=== PATIENT | female | born 1945 | race Caucasian/White ===

== ENCOUNTER 2022-10-02 11:00 | Inpatient (IN) | payer OTHER ==
[~2022-10-02] VITALS: Ht 162.6 cm; Wt 81.5 kg
[2022-10-02] MEDS ORDERED: HYDROmorphone HCL 2 MG/ML VL/or syr IV ONE ×2 (14:45→19:45)
[2022-10-02] MEDS ORDERED: ONDANSETRON HCL 4 MG/2 ML VIAL IV ONE ×2 (14:45)
[2022-10-02 17:17] LABS: Basophils # (auto) 0 10 ^3/uL (0-0.2); Basophils % (auto) 0.3 % (0.0-2.0); Eosinophils # (auto) 0.1 10 ^3/uL (0-0.8); Eosinophils % (auto) 0.8 % (0.0-7.0); Hematocrit 40.5 % (36.0-46.0); Hemoglobin 12.8 g/dL (12.2-16.2); Lymphocytes # (auto) 1.5 10 ^3/uL (0.4-5.4); Lymphocytes % (auto) 14.9 % (10.0-50.0); Mean Corpuscular Hemoglobin 27.2 pg (28.0-32.0); Mean Corpuscular Hgb Conc. 31.6 g/dL (32.0-36.0); Mean Corpuscular Volume 86.2 fL (80.0-100.0); Monocytes # (auto) 0.5 10 ^3/uL (0-1.3); Monocytes % (auto) 4.6 % (0.0-12.0); Neutrophils # (auto) 7.8 10 ^3/uL (1.6-8.6); Neutrophils % (auto) 79.4 % (37.0-80.0); Nucleated Red Blood Cells % 0.1 %; Red Cell Distribution Width 14.6 % (11.8-14.3); White Blood Cell 9.8 10^3/uL (4.4-10.8)
[2022-10-02 17:33] LABS: Albumin 3.8 g/dL (3.4-5.0); BUN/Creatinine Ratio 23.3; Calcium 9.3 mg/dL (8.5-10.1); Potassium 4.7 mmol/L (3.5-5.1)
[2022-10-02 17:35] LABS: Bilirubin, Total 0.4 mg/dL (0.2-1.0); Total Protein 7.4 g/dL (6.4-8.2)
[2022-10-02 17:42] LABS: INR 0.95 (0.9-1.15); Partial Thromboplastin Time 25.6 sec (24.6-33.4)
[2022-10-02] MEDS ORDERED: ONDANSETRON HCL 4 MG/2 ML VIAL IV PRN (22:45)
[2022-10-02] MEDS ORDERED: hydrALAZINE HCL 20 MG/ML VL IV PRN (22:45)
[2022-10-02] MEDS ORDERED: DEXTROSE (50%) 50ML SYRG IV PRN (22:45)
[2022-10-02] MEDS ORDERED: NITROGLYCERIN 0.4 MG SL TAB SL PRN (22:45)
[2022-10-02] MEDS ORDERED: ACETAMINOPHEN 325 MG TAB PO PRN (22:45)
[2022-10-02] MEDS ORDERED: MORPHINE SULFATE INJ 2 MG/ml SYRG IV PRN (22:45)
[2022-10-03] MEDS: SODIUM CHLORIDE 0.9% 1,000 ML IV SCH ×2 (00:22→15:25)
[2022-10-03] MEDS: ACCU-CHEK COMFORT CURVE STRIP VI SCH ×5 (00:34→23:46)
[2022-10-03] MEDS: InsuLIN REG 1unit/0.01ml Soln (100units/ml) SC SCH ×5 (00:44→23:50)
[2022-10-03 01:35] VITALS: BP 105/66
[2022-10-03] MEDS: HYDROmorphone HCL 2 MG/ML VL/or syr IV PRN ×3 (03:22→20:13)
[2022-10-03 05:00] VITALS: BP 104/65
[2022-10-03] MEDS: HYDROcodone-ACET 5/325MG TAB PO PRN ×2 (05:09→22:23)
[2022-10-03] MEDS ORDERED: HYDR-4798 PO (05:51)
[2022-10-03] MEDS ORDERED: AMLO-489 PO (05:51)
[2022-10-03] MEDS ORDERED: OMEP20TA PO (05:51)
[2022-10-03] MEDS ORDERED: ATEN50TA PO (05:51)
[2022-10-03] MEDS ORDERED: GABA100C9 PO (05:51)
[2022-10-03] MEDS ORDERED: LISI20TA28 PO (05:51)
[2022-10-03] MEDS ORDERED: GLIP5TAB12 PO (05:51)
[2022-10-03] MEDS ORDERED: DULO20CA PO (05:51)
[2022-10-03] MEDS ORDERED: ROSU20TA14 PO (05:51)
[2022-10-03 06:02] LABS: Basophils # (auto) 0 10 ^3/uL (0-0.2); Basophils % (auto) 0.4 % (0.0-2.0); Eosinophils # (auto) 0.1 10 ^3/uL (0-0.8); Eosinophils % (auto) 0.9 % (0.0-7.0); Hematocrit 39.5 % (36.0-46.0); Hemoglobin 12.7 g/dL (12.2-16.2); Lymphocytes # (auto) 1.7 10 ^3/uL (0.4-5.4); Mean Corpuscular Hgb Conc. 32.2 g/dL (32.0-36.0); Mean Corpuscular Volume 86.8 fL (80.0-100.0); Monocytes # (auto) 0.7 10 ^3/uL (0-1.3); Monocytes % (auto) 8.2 % (0.0-12.0); Neutrophils # (auto) 5.7 10 ^3/uL (1.6-8.6); Neutrophils % (auto) 69.5 % (37.0-80.0); Red Blood Cells 4.54 10^6/uL (4.0-5.20); Red Cell Distribution Width 14.7 % (11.8-14.3); White Blood Cell 8.2 10^3/uL (4.4-10.8)
[2022-10-03 06:30] LABS: Albumin 3.2 g/dL (3.4-5.0); BUN/Creatinine Ratio 15.1; Bilirubin, Total 0.5 mg/dL (0.2-1.0); Calcium 8.9 mg/dL (8.5-10.1); Total Protein 6.6 g/dL (6.4-8.2)
[2022-10-03] MEDS: FAMOTIDINE (10MG/ML) 2ML VL IV SCH (08:58)
[2022-10-03 09:01] VITALS: BP 137/75
[2022-10-03] MEDS ORDERED: ENOXAPARIN SOD 40 MG/0.4 ML SYRINGE SC SCH (10:00)
[2022-10-03] MEDS ORDERED: GENTAMICIN SULF 80 MG/2 ML VIAL ONE (12:13)
[2022-10-03] MEDS ORDERED: ceFAZolin 1GM VL ONE (12:21)
[2022-10-03] MEDS ORDERED: BUPIVACAINE W/ EPINEPH 0.25% INJ 50ML MDV ONE (12:21)
[2022-10-03] MEDS ORDERED: VANCOMYCIN HCL 1000 MG VL ONE (12:40)
[2022-10-03] MEDS ORDERED: SODIUM CHLORIDE LOCK 10 ML ONE ×2 (13:19→14:00)
[2022-10-03] MEDS ORDERED: PROPOFOL 10 MG/ML 20 ML IV ONE ×2 (13:29→15:46)
[2022-10-03] MEDS ORDERED: PHENYLEPHRINE HCL 10 MG/ML VL ONE (13:37)
[2022-10-03] MEDS ORDERED: ePHEDrine SULFATE 50 MG/ML AMP ONE (14:00)
[2022-10-03] MEDS ORDERED: ESMOLOL HCL 10 ML IV ONE (15:03)
[2022-10-03] MEDS ORDERED: LIDOCAINE 2% (LOCAL ANESTH.) PF 5ml SDV ONE (16:10)
[2022-10-03] MEDS ORDERED: fentaNYL CITRATE 100 MCG/2 ML VL ONE (16:20)
[2022-10-03 22:00] VITALS: BP 157/81
[2022-10-03] MEDS ORDERED: DexAMETHasone SOD PHOS 4 MG/1ML SDV INJ IV ONE (22:20)
[2022-10-03] MEDS ORDERED: GLYCOPYRROLATE 0.2 MG/ML 1ML VIAL IV ONE (22:20)
[2022-10-03] MEDS ORDERED: ONDANSETRON HCL 4 MG/2 ML VIAL IV ONE (22:20)
[2022-10-03] MEDS: ceFAZolin 2 GM in D5W 5% 100 ML IV SCH (22:22)
[2022-10-04] MEDS: HYDROmorphone HCL 2 MG/ML VL/or syr IV PRN ×5 (04:20→20:49)
[2022-10-04 05:00] VITALS: BP 143/66
[2022-10-04] MEDS: ACCU-CHEK COMFORT CURVE STRIP VI SCH ×3 (05:33→17:34)
[2022-10-04] MEDS: InsuLIN REG 1unit/0.01ml Soln (100units/ml) SC SCH ×3 (05:35→17:34)
[2022-10-04] MEDS: ceFAZolin 2 GM in D5W 5% 100 ML IV SCH ×2 (05:37→12:49)
[2022-10-04 06:12] LABS: Basophils # (auto) 0 10 ^3/uL (0-0.2); Basophils % (auto) 0.1 % (0.0-2.0); Eosinophils # (auto) 0 10 ^3/uL (0-0.8); Hematocrit 29.5 % (36.0-46.0); Hemoglobin 9.5 g/dL (12.2-16.2); Lymphocytes # (auto) 0.9 10 ^3/uL (0.4-5.4); Lymphocytes % (auto) 9.9 % (10.0-50.0); Mean Corpuscular Hemoglobin 27.9 pg (28.0-32.0); Mean Corpuscular Hgb Conc. 32.4 g/dL (32.0-36.0); Mean Corpuscular Volume 86.2 fL (80.0-100.0); Monocytes # (auto) 0.6 10 ^3/uL (0-1.3); Monocytes % (auto) 7.1 % (0.0-12.0); Neutrophils # (auto) 7.5 10 ^3/uL (1.6-8.6); Neutrophils % (auto) 82.9 % (37.0-80.0); Red Blood Cells 3.42 10^6/uL (4.0-5.20); Red Cell Distribution Width 14.7 % (11.8-14.3)
[2022-10-04] MEDS: HYDROcodone-ACET 5/325MG TAB PO PRN ×3 (06:26→17:36)
[2022-10-04 06:39] LABS: Calcium 8.8 mg/dL (8.5-10.1); Potassium 5.3 mmol/L (3.5-5.1)
[2022-10-04] MEDS: FAMOTIDINE (10MG/ML) 2ML VL IV SCH (08:49)
[2022-10-04] MEDS: SODIUM CHLORIDE 0.9% 1,000 ML IV SCH (08:50)
[2022-10-04 09:00] VITALS: BP 156/66
[2022-10-04 13:00] VITALS: BP 103/67
[2022-10-04 17:00] VITALS: BP 124/68
[2022-10-04] MEDS: ENOXAPARIN SOD 40 MG/0.4 ML SYRINGE SC SCH (17:37)
[2022-10-04 22:00] VITALS: BP 125/71
[2022-10-05] MEDS: HYDROcodone-ACET 5/325MG TAB PO PRN ×3 (02:07→19:17)
[2022-10-05 05:00] VITALS: BP 140/78
[2022-10-05 05:25] LABS: Hematocrit 28.8 % (36.0-46.0); Hemoglobin 9.8 g/dL (12.2-16.2)
[2022-10-05] MEDS: ACCU-CHEK COMFORT CURVE STRIP VI SCH ×4 (05:47→23:31)
[2022-10-05] MEDS: InsuLIN REG 1unit/0.01ml Soln (100units/ml) SC SCH ×3 (05:47→17:46)
[2022-10-05 09:00] VITALS: BP 140/70
[2022-10-05] MEDS: ENOXAPARIN SOD 40 MG/0.4 ML SYRINGE SC SCH (09:13)
[2022-10-05] MEDS: HYDROmorphone HCL 2 MG/ML VL/or syr IV PRN ×3 (09:14→22:02)
[2022-10-05 13:00] VITALS: BP 149/84
[2022-10-05] MEDS: GABAPENTIN 100 MG CAP PO SCH ×2 (13:15→22:03)
[2022-10-05] MEDS: ATENOLOL 50 MG TAB PO SCH (13:15)
[2022-10-05 17:00] VITALS: BP 112/58
[2022-10-05 22:00] VITALS: BP 130/54
[2022-10-05] MEDS ORDERED: ATORVASTATIN 20 MG TAB PO SCH (22:00)
[2022-10-05] MEDS: LISINOPRIL 20 MG TAB PO SCH (22:04)
[2022-10-06] MEDS: InsuLIN REG 1unit/0.01ml Soln (100units/ml) SC SCH ×3 (00:04→12:33)
[2022-10-06 05:00] VITALS: BP 126/71
[2022-10-06] MEDS: ACCU-CHEK COMFORT CURVE STRIP VI SCH ×2 (05:52→12:33)
[2022-10-06] MEDS: GABAPENTIN 100 MG CAP PO SCH ×2 (06:09→14:06)
[2022-10-06 08:00] VITALS: BP 143/71
[2022-10-06] MEDS: ENOXAPARIN SOD 40 MG/0.4 ML SYRINGE SC SCH (09:37)
[2022-10-06] MEDS: HYDROmorphone HCL 2 MG/ML VL/or syr IV PRN (09:37)
[2022-10-06] MEDS: ATENOLOL 50 MG TAB PO SCH (09:39)
[2022-10-06] MEDS: LISINOPRIL 20 MG TAB PO SCH (09:41)
[2022-10-06] MEDS ORDERED: glipiZIDE 5 MG TAB PO SCH (10:00)
[2022-10-06] MEDS ORDERED: DULoxetine HCL 30 MG CAP PO SCH (10:00)
[2022-10-06] MEDS ORDERED: PANTOPRAZOLE 40 MG TAB PO SCH (10:00)
[2022-10-06] MEDS ORDERED: amLODIPine BESYLATE 5 MG TAB PO SCH (10:00)
[2022-10-06 12:00] VITALS: BP 122/58
[2022-10-06] MEDS: HYDROcodone-ACET 5/325MG TAB PO PRN (12:07)
[2022-10-06 14:39] VITALS: BP 122/58
== END 2022-10-06 15:02 | DRG 482 ==
LOC: EDBD 11:00 → ER 11:30 → OVERFLOW 22:37 → CENTRAL 23:47
PROVIDERS: ADMIT Nurse Practitioner Family; ATTEND Hospitalist
PROC: 0QSC04Z Reposition Left Lower Femur with Internal Fixation Device, Open Approach (ICD-10-PCS; principal; 2022-10-03 13:00)
DX: M97.12XA Periprosthetic fracture around internal prosthetic left knee joint, initial encounter (principal); M97.02XA Periprosthetic fracture around internal prosthetic left hip joint, initial encounter; E11.9 Type 2 diabetes mellitus without complications; E78.5 Hyperlipidemia, unspecified; I10 Essential (primary) hypertension; Z96.651 Presence of right artificial knee joint; Z20.822 Contact with and (suspected) exposure to COVID-19; J44.9 Chronic obstructive pulmonary disease, unspecified; I25.10 Atherosclerotic heart disease of native coronary artery without angina pectoris; Z96.653 Presence of artificial knee joint, bilateral; Z79.891 Long term (current) use of opiate analgesic; Z88.6 Allergy status to analgesic agent; Z85.118 Personal history of other malignant neoplasm of bronchus and lung; Z87.891 Personal history of nicotine dependence
CPT/HCPCS: 36415; 71045; 73560; 73562; 73700; 76000; 80048; 80053; 82962; 83036; 85014; 85018; 85025; 85610; 85730; 86850; 86900; 86901; 87081; 87426; 93306; 93971; 96361; 96365; 96375; 96376; G0378; J0690; J1100; J1815; J2001; J2405; J2704; J3490; J7060

== ENCOUNTER 2025-10-13 15:59 | Emergency (ER) | payer OTHER ==
[~2025-10-13] VITALS: Ht 162.6 cm; Wt 78.0 kg
[~2025-10-13 15:59] MED LIST: AMLO1TAB22 PO; ATEN50TA PO; DULO20CA PO; GABA-1308 PO; GLIP5TAB21 PO; HYDR-4798 PO; LISI20TA56 PO; OMEP20TA PO; ROSU20TA14 PO
[2025-10-13 16:10] VITALS: PULSE 104; RESP 15; O2SAT 95
--- NOTE | 2025-10-13 16:50 | ED.PDOC ---
Altered Mental Status HPI Comments HPI: Robby 80 y.o female presents to the ED via EMS for a chief complaint of ALOC. Patient reports taking two of her pain medications today (unsure if it was her Morphine or Percocet in which she takes for chronic pain). Patient presents drowsy at bedside but is responsive when asking questions. Patient states she was out with her friends today shopping and yesterday was out and feeling well. Patient was given 2mg Narcan but had no change in baseline. Patient denies any recent head injuries or blood thinner use. Initial Vitals BP: 132/69 HR: 104 RR: 18 O2: 95% RA Temp: 98.6 F Past Medical History: HTN, DM and chronic back pain Past Surgical History: Unobtainable Social History: Denies Allergies: HPI: Poor Historian. REVIEW OF SYSTEMS: CONSTITUTIONAL: Denies acute: fever, diaphoresis, chills, HEAD: Denies acute: headache, photophobia Eyes: Denies acute: Double vision, vision loss, eye pain, eye discharge. EARS: Denies acute: tinnitus, hearing loss, ear discharge, ear pain, THROAT: Denies acute: sore throat, swelling, difficulty swallowing , pain with swallowing, change in voice. NECK: Denies acute: neck pain, neck swelling, stiff neck. HEART: Denies acute : chest pain, palpitations, LUNGS: Denies acute: SOB, wheezing, cough, hemoptysis ABDOMEN: Denies acute: abdominal pain, Nausea, Vomiting, diarrhea, melena , hematemesis, hematochezia SKIN: Denies acute: rash, redness, lesions, itchiness. EXTREMITIES: Denies acute: calf pain, numbness, tingling, weakness, denies pain in extremity. Denies acute: Low back pain. Neuro: Denies acute: focal neurological deficit, motor or sensory focal neurological deficit, tremors, seizure like activity, , loss of bowel or bladder function, cauda equina like symptoms. : Denies acute: dysuria, hematuria, flank pain, increase in urinary frequency. PSYCH: Denies acute: hallucination, suicidal ideation, homicidal ideation. FEMALE: Denies acute: abnormal vaginal bleeding, foul odor, unusual discharge. PHYSICAL EXAM: General: ----no---acute distress, awake and alert. Head: normocephalic, atraumatic. No raccoon's eyes, no harding sign. Neck: supple, trachea is midline, no swelling. Throat: Normal phonation. Eyes:, no erythema, no purulent discharge, no proptosis, no icterus. Heart: regular rate, regular rhythm, no significant murmur appreciated. Lungs: no apparent respiratory distress, Able to speak in full sentences. No wheezing, no rhonchi, no crackles. No stridors Clear to auscultation bilaterally. Abdomen: non tender to palpation, non distended, soft, no guarding, no rebound, + bowel sounds. Neuro: Awake, Alert, oriented to name, self, situation, follows commands. Appears lethargic and weak and slightly confused, occasional yawning. Occasional body twitching Skin: no petechia, no purpura, no cyanosis, slightly-pale, not jaundice. Lower extremities: --trace - Pitting edema no deformity, no focal swelling, no calf TTP. Makes eye contact. moves all four extremities. Face: no apparent facial droop. ED COURSE: DISCLAIMER: This medical document was created using an electronic medical record system with voice recognition software and computerized dictation system. Although this document has been carefully reviewed, there might still be some phonetic and ty pographical errors. Occasional wrong-word or "sound-alike" substitutions may have occurred due to the inherent limitations of voice recognition software. These areas are purely typographical due to imperfections of the software programs and do not reflect any compromise in the patient's medical care. Please read the chart carefully and recognize, using context, where these substitutions have occurred. Chief Complaint: General Weakness Time Seen by MD: 16:40 Primary Care Provider: STACIA Reviewed Notes: Telephone Collector Notes, Allergies Allergies: Coded Allergies: Morphine (Verified Adverse Reaction, Unknown, 10/03/22) Hallucinations, patient refusing to take again. Home Meds Reported Medications Duloxetine Hcl (Cymbalta) 20 Mg Cap, 30 MG PO, CAP 10/03/22 Rosuvastatin Calcium (Crestor) 20 Mg Tab, 20 MG PO, TAB 10/03/22 Lisinopril (Lisinopril) 20 Mg Tab, 1 TAB PO 10/03/22 Gabapentin (Gabapentin) 100 Mg Cap, 100 MG PO, MG 10/03/22 Omeprazole (Gnp Omeprazole) 20 Mg Tab, 20 MG PO, TAB 10/03/22 Amlodipine Besylate (Amlodipine Besylate) 5 Mg Tab, 5 MG PO DAILY, MG 10/03/22 Atenolol (Atenolol) 50 Mg Tab, 50 MG PO, MG 10/03/22 Glipizide (Glipizide) 5 Mg Tab, 5 MG PO, MG 10/03/22 Hydrocodone-Acetaminophen (Hydrocodone Bitartrate/AC 10-325 mg) 1 Tab Tab, 1 TAB PO, TAB 10/03/22 Information Source: Patient, Emergency Med Personnel Mode of Arrival: EMS Was a procedure done? Was a procedure done?: No Differential Diagnosis (ALOC) Differential Diagnosis: Dehydration, Hypoglycemia, Closed Head Injury, Drug Overdose, Heart Failure, Renal Failure, Other (DDX include CVA, TGA, cerebellar ischemia/infarct, carotid stenosis, Intracranial mass/infection/bleed, encephalopathy, electrolyte abnormality, thyroid disease, hydrocephalus, hypoglycemia, drug toxicity, cardiac arrhythmia, seizure, infection in the elderly, Hyperammonemia., kidney failure., sepsis.) X-Ray, Labs, Meds, VS Vital Signs Date Time Temp Pulse Resp B/P (MAP) Pulse Ox O2 Delivery O2 Flow Rate FiO2 10/13/25 18:41 107 18 99/63 (75) 97 10/13/25 17:25 90 17 108/56 (73) 97 10/13/25 16:10 104 15 95 Room Air* 0 21 10/13/25 16:10 98.3 95 15 142/69 (93) 95 98.3 10/13/25 16:01 104 10/13/25 16:00 98.6 104 18 132/69 95 98.6 Lab Test 10/13/25 19:35 10/13/25 17:45 10/13/25 16:55 Range/Units Troponin I High Sensitivity Pending 11 10 </=34 ng/L White Blood Count 9.1 4.4-10.8 10^3/uL Red Blood Count 4.11 4.0-5.20 10^6/uL Hemoglobin 11.6 L 12.2-16.2 g/dL Hematocrit 36.7 36.0-46.0 % Mean Corpuscular Volume 89.3 80.0-100.0 fL Mean Corpuscular Hemoglobin 28.2 28.0-32.0 pg Mean Corpuscular Hemoglobin Concent 31.6 L 32.0-36.0 g/dL Red Cell Distribution Width 14.9 H 11.8-14.3 % Platelet Count 211 140-450 10^3/uL Mean Platelet Volume 8.5 6.9-10.8 fL Neutrophils (%) (Auto) 76.1 37.0-80.0 % Lymphocytes (%) (Auto) 15.7 10.0-50.0 % Monocytes (%) (Auto) 6.3 0.0-12.0 % Eosinophils (%) (Auto) 1.5 0.0-7.0 % Basophils (%) (Auto) 0.4 0.0-2.0 % Neutrophils # (Auto) 6.9 1.6-8.6 10 ^3/uL Lymphocytes # (Auto) 1.4 0.4-5.4 10 ^3/uL Monocytes # (Auto) 0.6 0-1.3 10 ^3/uL Eosinophils # (Auto) 0.1 0-0.8 10 ^3/uL Basophils # (Auto) 0 0-0.2 10 ^3/uL Nucleated Red Blood Cells 0.0 % Sodium Level 141 136-145 mmol/L Potassium Level 4.3 3.5-5.1 mmol/L Chloride Level 107 98-107 mmol/L Carbon Dioxide Level 23 20-31 mmol/L Anion Gap 11 5-15 Blood Urea Nitrogen 33 H 9-23 mg/dL Creatinine 2.49 H 0.550-1.02 mg/dL Glomerular Filtration Rate Calc 19 >90 mL/min BUN/Creatinine Ratio 13.3 10.0-20.0 Serum Glucose 132 H 74-106 mg/dL Lactic Acid Level 0.6 0.4-2.0 mmol/L Calcium Level 8.2 L 8.7-10.4 mg/dL Magnesium Level 2.0 1.6-2.6 mg/dL Total Bilirubin 0.6 0.2-1.0 mg/dL Aspartate Amino Transferase (AST) 132 H 13-40 U/L Alanine Aminotransferase (ALT) 27 7-40 U/L Alkaline Phosphatase 81 46-116 U/L Total Protein 5.7 5.7-8.2 g/dL Albumin 3.8 3.2-4.8 g/dL Current Medications Medications (Trade) Dose Ordered Sig/Evelin Route Start Time Stop Time Status Last Admin Sodium Chloride 1,000 ml @ 1,000 mls/hr Q1H ONCE IV 10/13/25 16:15 10/13/25 17:14 DC 10/13/25 17:12 [place] [id number] Ph: [phone] DIAGNOSTIC IMAGING Diagnostic Imaging Report : [id number] Signed PATIENT: MYLENE CEE ACCT: [id number] UNIT: [id number] : 1945 LOC: ER ROOM / BED: / AGE / SEX: 80 / F ADM STATUS: REG ER SERVICE 13 ORDERING PHYSICIAN: SAMMY COLON DO PROCEDURE(s): CXRP - CHEST PORTABLE REASON: aloc ORDER NUMBER(s): [id number], ACCESSION NUMBER(s): [id number] CHEST RADIOGRAPH INDICATION: aloc TECHNIQUE: Single frontal view of the chest was obtained COMPARISON: CHEST PORTABLE on DOS: 10/02/22, CXRP on DOS: 10/02/22 FINDINGS: Lines and Tubes: None Lungs: No focal consolidation. Mild elevation of the right diaphragm unchanged from 10/02/2022 Pleura: No effusion. No pneumothorax. Cardiomediastinal contours: Unremarkable Bones: No acute osseous abnormality. IMPRESSION: 1. No acute cardiopulmonary disease. 2. Elevation right diaphragm unchanged from 10/02/2022 ATED BY: SHIRLEY MENDOZA Jr., DO DICTATED DATE/TIME: 10/13/251713 SIGNED BY: SHIRLEY MENDOZA Jr., SIGNED DATE/TIME: 10/13/251713 CC: Time of 1ST Reevaluation: 16:45 Reevaluation 1ST: Unchanged Patient Education/Counseling: Diagnosis, Treatment Family Education/Counseling: No Family Present Comments MDM: patient presented with the above HPI.-altered mental status-----workup was initiated. patient was found with the above mentioned diagnosis. Patient uses Percocet and morphine at home. She may have overdose or is withdrawing. No recent fall or trauma. the following medications were ordered: please refer to order lists of meds and tests obtained by myself Dr. Colon. Patient ED course and VS have been stabilized. Patient has been reassessed in the ED and remained in a stable condition. Pertinent incidental findings were discussed with the patient and/or family. Patient/family voices understanding and is agreeable with plan. Patient has been observed in the ED adequate length of time to insure improvement/stability. Escalation of care considered: Consideration of escalation to observation or admission Patient likely be transferred to [facility] to the medicine team for further evaluation and treatment of their presentation. All the reports of any imaging studies that were ordered by myself were reviewed by myself. The care of this patient was transitioned to my colleague Dr. Flores. Patient is awaiting CT scan of the head. Departure 1 Departure Time of Disposition: 17:58 Impression: Primary Impression: Altered mental status Additional Impression: Acute renal failure Disposition: ADMITTED INPATIENT Admit to: Tele Condition: Guarded Discharged With: Self Critical Care Note Critical Care Time?: No Heart Score Heart Score: Heart Score Response (Comments) Value History N/A 0 EKG N/A 0 Age N/A 0 Risk Factors N/A 0 Troponin N/A 0 Total 0 I personally scribed for SAMMY COLON DO ([email or web address]) on 10/13/25 at 16:50. Electronically submitted by Francesca Fleming ([employer]). I personally scribed for SAMMY COLON DO ([email or web address]) on 10/13/25 at 19:08. Electronically submitted by Francesca Fleming ([employer]). SAMMY COLON DO Oct 13, 2025 16:50
[2025-10-13 17:08] LABS: Hematocrit 36.7 % (36.0-46.0); Hemoglobin 11.6 g/dL (12.2-16.2); Mean Corpuscular Hemoglobin 28.2 pg (28.0-32.0); Mean Corpuscular Volume 89.3 fL (80.0-100.0); Nucleated Red Blood Cells % 0.0 %
[2025-10-13] MEDS: SODIUM CHLORIDE 0.9% 1,000 ML IV ONE (17:12)
--- NOTE | 2025-10-13 17:17 | DVH ---
CHEST RADIOGRAPH INDICATION: aloc TECHNIQUE: Single frontal view of the chest was obtained COMPARISON: CHEST PORTABLE on DOS: 10/02/22, CXRP on DOS: 10/02/22 FINDINGS: Lines and Tubes: None Lungs: No focal consolidation. Mild elevation of the right diaphragm unchanged from 10/02/2022 Pleura: No effusion. No pneumothorax. Cardiomediastinal contours: Unremarkable Bones: No acute osseous abnormality. IMPRESSION: 1. No acute cardiopulmonary disease. 2. Elevation right diaphragm unchanged from 10/02/2022
[2025-10-13 17:27] LABS: Alanine Aminotransferase 27 U/L (7-40); Albumin 3.8 g/dL (3.2-4.8); Alkaline Phosphatase 81 U/L (46-116); Anion Gap 11 (5-15); BUN/Creatinine Ratio 13.3 (10.0-20.0); Bilirubin, Total 0.6 mg/dL (0.2-1.0); Blood Urea Nitrogen 33 mg/dL (9-23); Calcium 8.2 mg/dL (8.7-10.4); Carbon Dioxide 23 mmol/L (20-31); Chloride 107 mmol/L (98-107); Glucose 132 mg/dL (74-106); Magnesium 2.0 mg/dL (1.6-2.6); Potassium 4.3 mmol/L (3.5-5.1); Sodium 141 mmol/L (136-145); Total Protein 5.7 g/dL (5.7-8.2)
--- NOTE | 2025-10-13 20:48 | DVH ---
COMPUTERIZED TOMOGRAPHY OF THE HEAD WITHOUT CONTRAST REASON FOR STUDY: Altered mental status COMPARISON: None TECHNIQUE: Helical tomographic scans were obtained through the brain. 2-D coronal and sagittal reformatted images are provided. Radiation optimization: All CT scans at this facility use at least one of these dose optimization techniques: Automated exposure control mA and/or kV adjustment per patient size (includes targeted exams where dose is matched to clinical indication) or iterative reconstruction. RADIATION DOSE: CTDI: 54.88 mGy DLP: 989.49 mGy-cm FINDINGS: No suspicious intracranial hyperdensity to suggest acute blood. There is no mass effect nor midline shift. There is severe generalized volume loss with compensatory enlargement of the CSF spaces. There is no hydrocephalus. The suprasellar cistern is intact. There are scattered and confluence periventricular and deep white matter hypodensities that are most consistent with chronic microangiopathic changes. The calvarium is intact. The visualized mastoid air cells and paranasal sinuses are clear. IMPRESSION: No acute intracranial abnormality. Severe generalized volume loss with severe chronic small vessel ischemic change.
[2025-10-13] MEDS: SODIUM CHLORIDE 0.9% 500 ML IV ONE (22:22)
[2025-10-13 23:11] LABS: COVID19 ANTIGEN SOFIA FIA NEGATIVE (NEGATIVE)
[2025-10-13 23:49] VITALS: BP 125/62; PULSE 88; RESP 16; TEMP 97.9; O2SAT 99
--- NOTE | 2025-10-15 10:36 | ECG ---
[facility] Test Date: 2025-10-13 Test Time: 16:01:41 Pat Name: MYLENE CEE Department: ED Room: Gender: F Scalper Operator: seth : 1945 Requested By: SAMMY COLON Order Number: [id number] Reading MD: Measurements Intervals [place] Rate: 104 P: 43 NM: 182 QRS: 17 QRSD: 91 T: -21 QT: 316 QTc: 416 Interpretive Statements Sinus tachycardia Inferior infarct, age indeterminate Please click the below link to view image of tracing.
== END 2025-10-14 00:03 | disposition short-term general hospital (02) ==
LOC: ER 15:59 → EDBD 15:59 → ER 10-14 00:03
DX: R41.82 Altered mental status, unspecified (principal); N17.9 Acute kidney failure, unspecified; I10 Essential (primary) hypertension; E11.9 Type 2 diabetes mellitus without complications; G89.29 Other chronic pain; Z88.5 Allergy status to narcotic agent; Z20.822 Contact with and (suspected) exposure to COVID-19
CPT/HCPCS: 36415; 70450; 71045; 80053; 82947; 83605; 83735; 84484; 85025; 87040; 87426; 93005; 96360; 96361; 99285; J7030; J7040